=== PATIENT | male | born 1965 | race Caucasian/White ===

== ENCOUNTER 2022-07-18 06:14 | Day surgery (SDC) | payer OTHER ==
[~2022-07-18] VITALS: Ht 195.6 cm; Wt 115.1 kg
[~2022-07-18 06:14] MED LIST: SAPHRIS10 MG
[2022-07-18] MEDS ORDERED: TOPI50 PO (06:44)
[2022-07-18] MEDS ORDERED: ATOR40TA PO (06:45)
--- NOTE | 2022-07-18 07:02 | NUR ---
07/18/22 0702 ASAD GONZALEZ TX GIVEN PER DR WALKER FOR INSPIRATORY WHEEZES PREOP
--- NOTE | 2022-07-18 07:58 | NUR ---
07/18/22 0758 Samantha Mcnamara 30 MG EPI USED TO SOAK PLEDGETS FOR PACKING AT [facility].
--- NOTE | 2022-07-18 10:10 | NUR ---
07/18/22 1010 KIM URBINA pain now 12/21 [facility] pt
== END 2022-07-18 10:35 | disposition home or self-care (01) ==
LOC: ORSCSDS 06:14
PROVIDERS: Otolaryngology
PROC: 09BM0ZZ Excision of Nasal Septum, Open Approach (ICD-10-PCS; principal; 2022-07-18 07:30)
PROC: 09SL0ZZ Reposition Nasal Turbinate, Open Approach (ICD-10-PCS; principal; 2022-07-18 07:30)
DX: J34.2 Deviated nasal septum (principal); J34.3 Hypertrophy of nasal turbinates; E78.5 Hyperlipidemia, unspecified; F41.8 Other specified anxiety disorders; F31.9 Bipolar disorder, unspecified; Z79.899 Other long term (current) drug therapy
CPT/HCPCS: J0171; J1100; J2250; J2405; J2704; J3010; J7120

== ENCOUNTER 2022-10-10 22:43 | Emergency (ER) | payer OTHER ==
[~2022-10-10] VITALS: Ht 193 cm; Wt 115.7 kg
[~2022-10-10 22:43] MED LIST changes: +ATOR40TA PO; +TOPI50 PO
== END 2022-10-11 01:00 | disposition home or self-care (01) ==
LOC: ER 22:43
DX: S01.81XA Laceration without foreign body of other part of head, initial encounter (principal); W10.8XXA Fall (on) (from) other stairs and steps, initial encounter; Z79.899 Other long term (current) drug therapy
CPT/HCPCS: 90714

== ENCOUNTER 2023-04-24 09:14 | Day surgery (SDC) | payer OTHER ==
[~2023-04-24] VITALS: Ht 195.6 cm; Wt 115.2 kg
[2023-04-24] MEDS ORDERED: FAMO10 (09:38)
--- NOTE | 2023-04-24 10:08 | NUR ---
04/24/23 1008 Katarina Fox PT HAD FLEET ENEMA PER DR VANCE ORDERS. PT HAD DARK WATER AND UNABLE TO SEE BOWL OF TOILET. AFTER ENEMA LIGHT YELLOW AND MILD SEDIMENT- RN ORD.TCR OBSERVED
[2023-04-24 11:40] VITALS: BP 118/81
== END 2023-04-24 11:33 | disposition home or self-care (01) ==
LOC: ORSCSDS 09:14
PROVIDERS: Internal Medicine Gastroenterology
PROC: 0DBM8ZX Excision of Descending Colon, Via Natural or Artificial Opening Endoscopic, Diagnostic (ICD-10-PCS; principal; 2023-04-24 10:30)
PROC: 0DBL8ZX Excision of Transverse Colon, Via Natural or Artificial Opening Endoscopic, Diagnostic (ICD-10-PCS; principal; 2023-04-24 10:30)
DX: Z12.11 Encounter for screening for malignant neoplasm of colon (principal); Z86.010 Personal history of colon polyps; D12.4 Benign neoplasm of descending colon; D12.3 Benign neoplasm of transverse colon; K57.30 Diverticulosis of large intestine without perforation or abscess without bleeding; K21.9 Gastro-esophageal reflux disease without esophagitis; Z79.899 Other long term (current) drug therapy
CPT/HCPCS: 88305; J2704; J7120

== ENCOUNTER → 2025-08-04 | Outpatient (CLI) | payer OTHER ==
[~2025-08-04] MED LIST changes: +FAMO10
[2025-08-04 14:39] LABS: Hematocrit 45.9 % (37.0-53.0); Hemoglobin 15.5 g/dL (13.5-17.5); Mean Corpuscular HGB Conc 33.8 g/dL (31.5-36.5); Mean Corpuscular Volume 86 fL (80-100); NRBC ABSOLUTE 0.00 K/mm3 (0.00-0.02); NRBC Auto 0.0 /100 WBC (0.0-0.2); Platelet Count 175 K/mm3 (150-400); RDW Coefficient Variation 13.4 % (11.7-14.2); RDW Standard Deviation 42.3 fL (35.1-46.3)
[2025-08-04 17:47] LABS: Alanine Aminotransfer (ALT/SGP 40 U/L (12-78); Albumin, Blood 3.8 g/dL (3.4-5.0); Albumin/Globulin Ratio 1.3 (0.8-1.8); Anion Gap 8 mmol/L (3-11); Aspartate Aminotrans (AST/SGOT 23 U/L (12-37); Bilirubin, Total 0.5 mg/dL (0.1-1.0); Blood Urea Nitrogen 10 mg/dL (8-24); CHOL/HDL RATIO 3.4; CO2, Blood 25 mmol/L (21-32); Calcium, Blood 8.8 mg/dL (8.5-10.1); Chloride, Blood 113 mmol/L (98-108); Cholesterol 162 mg/dL (50-200); Creatinine, Blood 1.11 mg/dL (0.60-1.20); Globulin, Blood 2.9 g/dL (2.2-4.0); Glucose, Blood 97 mg/dL (70-99); HDL Cholesterol 48 mg/dL (>39); LDL/HDL RATIO 2.0; Low Density Lipoprotein Chol 94 mg/dL (0-110); Potassium, Blood 3.9 mmol/L (3.5-5.5); Prostate Specific Antigen 0.575 ng/mL (0.000-4.000); Sodium, Blood 142 mmol/L (136-145); Total Protein, Blood 6.7 g/dL (6.4-8.2); Triglycerides 101 mg/dL (30-160); Very Low Density Lipoprot Chol 20 mg/dL (6-32)
[2025-08-04 18:18] LABS: Thyroid Stimulating Hormone 1.260 uIU/mL (0.360-4.800)
== END ==
LOC: LAB SHORT 13:45 → LAB 13:45
PROVIDERS: Internal Medicine
DX: E78.2 Mixed hyperlipidemia (principal); Z12.5 Encounter for screening for malignant neoplasm of prostate
CPT/HCPCS: 80053; 80061; 84443; 85027; G0103